=== PATIENT | female | born 1955 | race Caucasian/White ===

== ENCOUNTER → 2021-03-31 09:25 | Outpatient (BNVA) | payer MEDICARE, BC, SELFPAY | PROVIDERS: Family Provider Family Medicine; Visit Provider Nurse Practitioner Family | DX: E11.9 Type 2 diabetes mellitus without complications (principal) | CPT/HCPCS: 80048 ==

== ENCOUNTER → 2021-05-01 11:12 | Outpatient (BNVA) | payer MEDICARE, BC, SELFPAY | PROVIDERS: Family Provider Family Medicine; PCP Nurse Practitioner Family; Visit Provider Nurse Practitioner Family | DX: E11.9 Type 2 diabetes mellitus without complications (principal); R19.7 Diarrhea, unspecified; F41.9 Anxiety disorder, unspecified; F32.9 Major depressive disorder, single episode, unspecified; K21.9 Gastro-esophageal reflux disease without esophagitis; Z85.038 Personal history of other malignant neoplasm of large intestine | CPT/HCPCS: 80053; 80061; 83036; 84443; 85025 ==

== ENCOUNTER → 2021-05-05 09:48 | Outpatient (BNVA) | payer MEDICARE, BC, SELFPAY | PROVIDERS: Family Provider Family Medicine; PCP Nurse Practitioner Family; Visit Provider Nurse Practitioner Family | DX: E11.9 Type 2 diabetes mellitus without complications (principal); R19.7 Diarrhea, unspecified | CPT/HCPCS: 83630; 87338; 87506 ==

== ENCOUNTER → 2021-06-25 16:04 | Outpatient (BNVA) | payer MEDICARE, BC, SELFPAY | PROVIDERS: Family Provider Family Medicine; PCP Nurse Practitioner Family; Visit Provider Nurse Practitioner Family | DX: M79.642 Pain in left hand (principal) | CPT/HCPCS: 73130 ==

== ENCOUNTER → 2021-11-04 09:13 | Outpatient (BNVA) | payer MEDICARE, BC, SELFPAY | PROVIDERS: Family Provider Family Medicine; PCP Nurse Practitioner Family; Visit Provider Nurse Practitioner Family | DX: E11.9 Type 2 diabetes mellitus without complications (principal) | CPT/HCPCS: 80053; 80061; 83036; 85025 ==

== ENCOUNTER → 2021-12-01 11:53 | Outpatient (BNVA) | payer MEDICARE, BC, SELFPAY | PROVIDERS: Family Provider Family Medicine; PCP Nurse Practitioner Family; Visit Provider Nurse Practitioner Family | DX: R79.89 Other specified abnormal findings of blood chemistry (principal) | CPT/HCPCS: 80048 ==

== ENCOUNTER → 2022-02-09 00:01 | Outpatient (BNVA) | payer MEDICARE, BC, SELFPAY | PROVIDERS: Family Provider Family Medicine; PCP Nurse Practitioner Family; Visit Provider Nurse Practitioner Family | DX: E11.9 Type 2 diabetes mellitus without complications (principal); N18.9 Chronic kidney disease, unspecified | CPT/HCPCS: 80053; 80061; 82043; 82306; 82607; 83036; 83735; 84443; 85025 ==

== ENCOUNTER 2022-02-19 13:30 | Outpatient (CLI) | payer MEDICARE, BC, SELFPAY ==
--- NOTE | 2022-02-19 13:53 | MM_ITS ---
WS: [id number] BILATERAL 3D TOMOSYNTHESIS DIGITAL SCREENING MAMMOGRAPHY WITH CAD CLINICAL INFORMATION: Z12.31 - Encounter for screening mammogram for malignant ... HISTORY: Screening mammogram. No current complaints. COMPARISON: September 27, 2017 TECHNIQUE: Bilateral CC and MLO views. FINDINGS: Scattered fibroglandular densities bilaterally. Vascular calcification. Punctate and lucent centered calcifications. No suspicious focal mass, asymmetry, calcifications, or architectural distortion. No evidence of malignancy. MM/[place] [id number] IMPRESSION: BI-RADS: 2-Benign FOLLOW UP: 1 Year Follow-up Recommend return to annual screening mammography.
== END 2022-02-19 13:31 | disposition home or self-care (01) ==
LOC: RAD 13:34
PROVIDERS: PCP Nurse Practitioner Family; Visit Provider Nurse Practitioner Family
DX: Z12.31 Encounter for screening mammogram for malignant neoplasm of breast (principal)
CPT/HCPCS: 77063; 77067

== ENCOUNTER 2022-03-27 13:44 | Outpatient (CLI) | payer MEDICARE, BC, SELFPAY ==
--- NOTE | 2022-03-27 14:15 | US_ITS ---
WS: [id number] ULTRASOUND RENAL TECHNIQUE: Ultrasound examination of both kidneys. CLINICAL INFORMATION: N18.9 - Chronic kidney disease, unspecified COMPARISON: None. FINDINGS: RIGHT: Right kidney is normal in size and appearance. Echogenicity: Normal. Cortical thickness: 1.3 cm; Normal. Hydronephrosis: None. Perinephric fluid: None. Right kidney measures: 9.8 cm x 4.9 cm x 5.5 cm. LEFT: Left kidney is normal in size and appearance. Echogenicity: Normal. Cortical thickness: 1.4 cm; Normal. Hydronephrosis: None. Perinephric fluid: None. Left kidney measures: 10.4 cm x 4.2 cm x 5.9 cm. Normal visualized aorta. Bladder is decompressed and not visualized. US/US renal BI* [id number] IMPRESSION: Normal renal ultrasound
== END 2022-03-27 13:45 | disposition home or self-care (01) ==
LOC: RAD 13:46
PROVIDERS: PCP Nurse Practitioner Family; Visit Provider Nurse Practitioner Family
DX: N18.9 Chronic kidney disease, unspecified (principal)
CPT/HCPCS: 76770

== ENCOUNTER → 2022-05-05 14:29 | Outpatient (BNVA) | payer MEDICARE, BC, SELFPAY | PROVIDERS: PCP Nurse Practitioner Family; Visit Provider Nurse Practitioner Family | DX: M25.532 Pain in left wrist (principal) | CPT/HCPCS: 73110 ==

== ENCOUNTER → 2022-05-06 10:16 | Outpatient (BNVA) | payer MEDICARE, BC, SELFPAY | PROVIDERS: PCP Nurse Practitioner Family; Visit Provider Surgery | DX: Z12.11 Encounter for screening for malignant neoplasm of colon (principal) | CPT/HCPCS: 99213 ==

== ENCOUNTER → 2022-05-12 08:23 | Outpatient (BNVA) | payer MEDICARE, BC, SELFPAY | PROVIDERS: PCP Nurse Practitioner Family; Visit Provider Nurse Practitioner Family | DX: E11.9 Type 2 diabetes mellitus without complications (principal); F32.9 Major depressive disorder, single episode, unspecified; F41.9 Anxiety disorder, unspecified; I10 Essential (primary) hypertension; K21.9 Gastro-esophageal reflux disease without esophagitis; N18.9 Chronic kidney disease, unspecified | CPT/HCPCS: 80053; 80061; 83036; 85025 ==

== ENCOUNTER 2022-07-06 14:22 | Outpatient (CLI) | payer MEDICARE, BC, SELFPAY ==
--- NOTE | 2022-07-06 15:30 | XR_ITS ---
WS: [id number] DEXA (DUAL ENERGY X-RAY ABSORPTIOMETRY) Bone mineral density was performed using a INXPO machine. HISTORY: screening. COMPARISON: None available. Lumbar spine BMD (L1-L4): 1.006 g/cm2 T score: -1.4 Z score: -0.3 Total hip BMD: Left: 1.047 g/cm2. T score: 0.3 Z score: 1.2 Right: 1.066 g/cm2. T score: 0.5 Z score: 1.4 Left forearm BMD: 0.749 g/cm2. T score: -1.4 Z score: 0.0 10 year probability of a major osteoporotic fracture is 8.6%. XR/XR DEXA axial skeleton* [id number] IMPRESSION: OSTEOPENIA based upon the WHO classification for females.
== END 2022-07-06 14:23 | disposition home or self-care (01) ==
PROVIDERS: PCP Nurse Practitioner Family; Visit Provider Nurse Practitioner Family
DX: Z13.820 Encounter for screening for osteoporosis (principal); Z78.0 Asymptomatic menopausal state; M85.80 Other specified disorders of bone density and structure, unspecified site
CPT/HCPCS: 77080

== ENCOUNTER → 2022-07-08 09:07 | Outpatient (BNVA) | payer MEDICARE, BC, OTHER, SELFPAY | PROVIDERS: PCP Nurse Practitioner Family; Referring Provider Nurse Practitioner Family; Visit Provider Specialist | DX: M25.532 Pain in left wrist (principal); E11.40 Type 2 diabetes mellitus with diabetic neuropathy, unspecified; Z79.899 Other long term (current) drug therapy | CPT/HCPCS: 95908; 95909 ==

== ENCOUNTER 2022-07-17 07:35 | Day surgery (SDC) | payer MEDICARE, BC, SELFPAY ==
[2022-07-15 09:28] VITALS: BMI 29.3
[2022-07-17 07:56] VITALS: BP 156/67; PULSE 78; RESP 18; TEMP 36.3; O2SAT 98
[2022-07-17] MEDS: sodium chloride 0.9% 1,000 ML 30 ML IV (08:19)
--- NOTE | 2022-07-17 08:21 | P.ANESASSM_ITS ---
Pre-Anesthetic Assessment Height/Weight: Height 1.63 m Weight 77.564 kg Temp Pulse Resp BP Pulse Ox O2 Del Method 97.3 F L 78 18 156/67 98 07/17/22 07:56 07/17/22 07:56 07/17/22 07:56 07/17/22 07:56 07/17/22 07:56 07/17/22 07:56 Operation Date: 07/17/22 09:15 Proposed Procedures p Colonoscopy 94789,Z12.11(Not Applicable) - Rio Dominguez DO Familial anesthetic complications: None Was Beta Hanny taken within 24 hours: N/A Was Clonidine taken within 24 hours: N/A Last intake: Intake Last Liquid Date 07/16/22 Last Liquid Time 22:00 Last Solid Date 07/15/22 Last Solid Time 18:00 Social No alcohol and No tobacco Exam alert, oriented x 3, clear to auscultation bilaterally and regular rate & rhythm Airway Mallampati: Class III Dentition: other (bridge) Pulmonary Asthma CV/HEM Hypertension GI Gastroesophageal Reflux Disease Metabolic Diabetes Mellitus Anesthetic Plan ASA status: 3 Anesthesia: MAC Risk of > 500 ml blood loss (7ml/kg in children): No Medications/Allergies Home Medications Medication Instructions Recorded Confirmed Last Taken Type albuterol sulfate 90 mcg/actuation 2 puff inhalation Q6H PRN 03/03/21 07/15/22 Unknown History aerosol inhaler Shortness Of Breath blood sugar diagnostic (Accutrend 03/03/21 07/08/22 Unknown History Glucose test strips) buspirone 10 mg tablet 10 mg PO TID 90 days #270 tabs 05/05/22 07/15/22 Unknown Rx cyclobenzaprine 10 mg tablet 10 mg PO TID #90 tabs 05/05/22 07/15/22 Unknown Rx fluticasone 100 mcg-salmeterol 50 1 inh inhalation BID #60 ea 05/05/22 07/15/22 Unknown Rx mcg/dose blistr powdr for inhalation (Advair Diskus) fluticasone propionate 50 2 spray intranasal DAILY #16 grams 05/05/22 07/15/22 Unknown Rx mcg/actuation nasal spray,suspension (Allergy Relief (fluticasone)) gabapentin 300 mg capsule 300 mg PO TID #90 caps 05/05/22 07/15/22 Unknown Rx hydrochlorothiazide 12.5 mg tablet 12.5 mg PO QAM #90 tabs 05/05/22 07/15/22 Unknown Rx liraglutide 0.6 mg/0.1 mL (18 mg/3 1.8 mg (0.3 mL) SUBCUT DAILY #9 mL 05/05/22 07/15/22 Unknown Rx mL) subcutaneous pen injector (Victoza 3-Junior) olmesartan 5 mg tablet 5 mg PO DAILY #90 tabs 05/05/22 07/15/22 Unknown Rx tramadol 50 mg tablet 50 mg PO BID PRN pain #60 tabs 05/05/22 07/15/22 Unknown Rx DIABETIC SHOES AND INSERTS #1 ea 06/09/22 07/08/22 Unknown Rx sitagliptin 50 mg-metformin 500 mg 1 tab PO BID #60 tabs 07/03/22 07/15/22 Unknown Rx tablet (Janumet) raloxifene 60 mg tablet (Evista) 60 mg PO DAILY 90 days #90 tabs 07/06/22 07/15/22 Unknown Rx dexlansoprazole 60 mg 60 mg PO DAILY 90 days #90 caps 07/07/22 07/15/22 Unknown Rx capsule,biphase delayed release (Dexilant) flash glucose scanning reader #1 ea 07/07/22 07/08/22 Unknown Rx (FreeStyle Keren 14 Day [place]) flash glucose sensor (FreeStyle #2 ea 07/07/22 07/08/22 Unknown Rx Keren 14 Day Sensor) semaglutide (Ozempic) 0.25 mg (0.2 mL) SUBCUT .weekly 30 07/07/22 07/08/22 Unknown Rx days #1.5 mL bupropion HCl 300 mg 24 hr tablet, 300 mg PO DAILY 07/17/22 07/17/22 Unknown History extended release Allergies Allergy/AdvReac Type Severity Reaction Status Date / Time No Known Allergies Allergy Verified 07/08/22 09:11 Current Medications Generic Name Dose Route Start Last Admin Trade Name Freq PRN Reason Stop Dose Admin Sodium Chloride 1,000 mls @ 30 mls/hr 07/17/22 07:45 07/17/22 08:19 Sodium Chloride 0.9% IV 07/18/22 07:44 30 mls/hr .Q24H SOHAIL Administration PFSH Anesthesia Medical History Anxiety and depression Asthma Colon cancer Diabetes mellitus GERD (gastroesophageal reflux disease) IBS (irritable bowel syndrome) Screening mammogram, encounter for Surgical History H/O abdominal hysterectomy History of cholecystectomy History of colon resection History of removal of cyst Hx of colonoscopy Family History Father Diabetes CAD (coronary artery disease) Mother Diabetes Cancer CAD (coronary artery disease) Denies family history of Hyperlipidemia Psychiatric illness Stroke Social History Smoking and tobacco status: never smoked Second hand smoke exposure: No Alcohol intake: current Alcohol intake frequency: holidays/special occasions o nly Caregiver/support person: Yes Lives independently: Yes Household members: caregiver Marital status: Current occupational status: employed Current occupation: Caregiver for elderly lady History of recent travel: No Current gender identity: Female Special cooper needs: No Agree to transfusion: Yes Data Anesthesia Cardiac Studies: No Data to Display
--- NOTE | 2022-07-17 08:39 | PM.HP ---
Providers/Chief Complaint Primary Care Provider: Nereida Lindsey NP Chief Complaint: History of colon cancer History of Present Illness Katie Malik is a 67 year old female here for colonoscopy Medications/Allergies Home Medications Medication Instructions Recorded Confirmed Last Taken Type albuterol sulfate 90 mcg/actuation 2 puff inhalation Q6H PRN 03/03/21 07/15/22 07/02/22 History aerosol inhaler Shortness Of Breath blood sugar diagnostic (Accutrend 03/03/21 07/08/22 Unknown History Glucose test strips) buspirone 10 mg tablet 10 mg PO TID 90 days #270 tabs 05/05/22 07/15/22 07/16/22 Rx fluticasone 100 mcg-salmeterol 50 1 inh inhalation BID #60 ea 05/05/22 07/15/22 07/02/22 Rx mcg/dose blistr powdr for inhalation (Advair Diskus) fluticasone propionate 50 2 spray intranasal DAILY #16 grams 05/05/22 07/15/22 07/02/22 Rx mcg/actuation nasal spray,suspension (Allergy Relief (fluticasone)) gabapentin 300 mg capsule 300 mg PO TID #90 caps 05/05/22 07/15/22 07/16/22 Rx hydrochlorothiazide 12.5 mg tablet 12.5 mg PO QAM #90 tabs 05/05/22 07/15/22 07/16/22 Rx liraglutide 0.6 mg/0.1 mL (18 mg/3 1.8 mg (0.3 mL) SUBCUT DAILY #9 mL 05/05/22 07/15/22 07/16/22 Rx mL) subcutaneous pen injector (Victoza 3-Junior) olmesartan 5 mg tablet 5 mg PO DAILY #90 tabs 05/05/22 07/15/22 07/16/22 Rx tramadol 50 mg tablet 50 mg PO BID PRN pain #60 tabs 05/05/22 07/15/22 07/02/22 Rx DIABETIC SHOES AND INSERTS #1 ea 06/09/22 07/08/22 Unknown Rx sitagliptin 50 mg-metformin 500 mg 1 tab PO BID #60 tabs 07/03/22 07/15/22 07/16/22 Rx tablet (Janumet) raloxifene 60 mg tablet (Evista) 60 mg PO DAILY 90 days #90 tabs 07/06/22 07/15/22 07/16/22 Rx dexlansoprazole 60 mg 60 mg PO DAILY 90 days #90 caps 07/07/22 07/15/22 07/16/22 Rx capsule,biphase delayed release (Dexilant) flash glucose scanning reader #1 ea 07/07/22 07/08/22 Unknown Rx (FreeStyle Keren 14 Day [place]) flash glucose sensor (FreeStyle #2 ea 07/07/22 07/08/22 Unknown Rx Keren 14 Day Sensor) semaglutide (Ozempic) 0.25 mg (0.2 mL) SUBCUT .weekly 30 07/07/22 07/17/22 Unknown Rx days #1.5 mL bupropion HCl 300 mg 24 hr tablet, 300 mg PO DAILY 07/17/22 07/17/22 07/16/22 History extended release cyclobenzaprine 10 mg tablet 10 mg PO TID PRN Spasms 07/17/22 07/15/22 07/02/22 History Allergies Allergy/AdvReac Type Severity Reaction Status Date / Time No Known Allergies Allergy Verified 07/08/22 09:11 PFSH Acute PFSH: Medical History Anxiety and depression Asthma Colon cancer Diabetes mellitus GERD (gastroesophageal reflux disease) IBS (irritable bowel syndrome) Screening mammogram, encounter for Surgical History H/O abdominal hysterectomy History of cholecystectomy History of colon resection History of removal of cyst Hx of colonoscopy Family History Father Diabetes CAD (coronary artery disease) Mother Diabetes Cancer CAD (coronary artery disease) Denies family history of Hyperlipidemia Psychiatric illness Stroke Social History Smoking and tobacco status: never smoked Second hand smoke exposure: No Alcohol intake: current Alcohol intake frequency: holidays/special occasions only Caregiver/support person: Yes Lives independently: Yes Household members: caregiver Marital status: Current occupational status: employed 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
[2022-07-17 09:08] VITALS: BP 141/62; PULSE 85; RESP 18; TEMP 36.1; O2SAT 97
--- NOTE | 2022-07-17 09:12 | ANE.PACU2 ---
Inpatient post-anesthesia follow up: Airway intact: Yes Vital signs: Temperature 97.0 F Pulse Rate 85 Respiratory Rate 18 Blood Pressure 141/62 Pulse Oximetry 97 Oxygen Delivery Me thod Room Air Oxygen Flow Rate Fraction of Inspir ed Oxygen Hydration adequate: Yes Nausea and vomiting: No Pain level: 1 Mental status: Baseline
[2022-07-17 09:18] VITALS: BP 148/74; PULSE 82; RESP 18; O2SAT 96
== END 2022-07-17 09:34 | disposition home or self-care (01) ==
PROVIDERS: PCP Nurse Practitioner Family; Visit Provider Surgery
PROC: 0DJD8ZZ Inspection of Lower Intestinal Tract, Via Natural or Artificial Opening Endoscopic (ICD-10-PCS; CPT 45378; principal; 2022-07-17 09:15)
DX: Z12.11 Encounter for screening for malignant neoplasm of colon (principal); K57.30 Diverticulosis of large intestine without perforation or abscess without bleeding; D12.3 Benign neoplasm of transverse colon; K51.40 Inflammatory polyps of colon without complications; I10 Essential (primary) hypertension; E11.9 Type 2 diabetes mellitus without complications; K21.9 Gastro-esophageal reflux disease without esophagitis; Z85.038 Personal history of other malignant neoplasm of large intestine
CPT/HCPCS: 45385; 88305; J2704; J7030

== ENCOUNTER → 2022-08-04 12:13 | Outpatient (BNVA) | payer MEDICARE, BC, SELFPAY | PROVIDERS: PCP Nurse Practitioner Family; Visit Provider Surgery | DX: Z09 Encounter for follow-up examination after completed treatment for conditions other than malignant neoplasm (principal); K63.5 Polyp of colon; K57.90 Diverticulosis of intestine, part unspecified, without perforation or abscess without bleeding | CPT/HCPCS: 99212 ==

== ENCOUNTER → 2022-08-20 13:46 | Outpatient (BNVA) | payer MEDICARE, BC, SELFPAY | PROVIDERS: PCP Nurse Practitioner Family; Visit Provider Nurse Practitioner Family | DX: E11.9 Type 2 diabetes mellitus without complications (principal); F32.9 Major depressive disorder, single episode, unspecified; F41.9 Anxiety disorder, unspecified; I10 Essential (primary) hypertension; K21.9 Gastro-esophageal reflux disease without esophagitis; M85.80 Other specified disorders of bone density and structure, unspecified site; N18.32 Chronic kidney disease, stage 3b; N18.9 Chronic kidney disease, unspecified | CPT/HCPCS: 80053; 80061; 83036 ==

== ENCOUNTER 2023-01-06 14:34 | Outpatient (CLI) | payer MEDICARE, BC, SELFPAY ==
--- NOTE | 2023-01-06 14:47 | US_ITS ---
WS: [id number] RENAL ULTRASOUND HISTORY: STAGE 3B CHRONIC KIDNEY DZ COMPARISON: 03/27/2022 TECHNIQUE: 2-D and color Doppler imaging of the kidney submitted. Right kidney: 10.8 cm x 5.4 cm x 5.0 cm. Cortex: 1.4 cm. Normal echogenicity with no hydronephrosis or mass. Left kidney: 9.9 cm x 3.9 cm x 5.1 cm. Cortex: 1.2 cm. Normal echogenicity with no hydronephrosis or mass. Aorta: Normal. Urinary Bladder: Normal distention. US/US renal BI* [id number] IMPRESSION: Normal renal ultrasound. No hydronephrosis or mass. Similar to the prior examin ation from 03/27/2022.
== END 2023-01-06 14:35 | disposition home or self-care (01) ==
LOC: RAD 14:37
PROVIDERS: PCP Nurse Practitioner Family; Visit Provider Internal Medicine Nephrology
DX: N18.32 Chronic kidney disease, stage 3b (principal)
CPT/HCPCS: 76770

== ENCOUNTER 2023-02-25 11:52 | Outpatient (CLI) | payer MEDICARE, BC, SELFPAY ==
--- NOTE | 2023-02-25 12:06 | MM_ITS ---
WS: [id number] Bilateral screening 3D tomosynthesis digital mammogram, 02/25/2023 Clinical Data: SCREENING Comparison: 02/19/2022, 09/27/2017, 09/23/2016, 10/14/2015, 10/10/2014, 10/09/2013, 09/29/2012, 08/21/20 10. Findings: The breast parenchymal pattern shows fat replacement. No spiculated masses or clustered calcification s are seen. There are no secondary signs of carcinoma. There are calcifications in the mejia small ve ssels. There are bilateral mole markers. MM/[place] [id number] Impression: 1. Negative bilateral mammogram unchanged. 2. Recommend annual screening mammograms. BIRADS: 1-Negative FOLLOW UP: 1 Year Follow-up The CAD checker in was used.
== END 2023-02-25 11:53 | disposition home or self-care (01) ==
LOC: RAD 11:55
PROVIDERS: PCP Nurse Practitioner Family; Visit Provider Nurse Practitioner Family
DX: Z12.31 Encounter for screening mammogram for malignant neoplasm of breast (principal)
CPT/HCPCS: 77063; 77067

== ENCOUNTER 2024-03-07 09:52 | Outpatient (CLI) | payer MEDICARE, BC, SELFPAY ==
--- NOTE | 2024-03-07 10:00 | MM_ITS ---
WS: [id number] BILATERAL 3D TOMOSYNTHESIS DIGITAL SCREENING MAMMOGRAPHY WITH CAD CLINICAL INFORMATION: SCREENING HISTORY: Screening mammogram. No current complaints. COMPARISON: 2022 TECHNIQUE: Bilateral CC and MLO views. FINDINGS: Scattered fibroglandular densities bilaterally. No suspicious focal mass, asymmetry, calcifications, or architectural distortion. No evidence of malignancy. Vascular calcifications. Incidental punctate calcifications. MM/[id number] IMPRESSION: BI-RADS: 2-Benign FOLLOW UP: 1 Year Follow-up Recommend return to annual screening mammography.
== END 2024-03-07 09:53 | disposition home or self-care (01) ==
LOC: MOBLMAM 10:03
PROVIDERS: PCP Nurse Practitioner Family; Visit Provider Nurse Practitioner Family
DX: Z12.31 Encounter for screening mammogram for malignant neoplasm of breast (principal)
CPT/HCPCS: 77063; 77067

== ENCOUNTER → 2024-03-21 13:35 | Outpatient (BNVA) | payer MEDICARE, BC, SELFPAY | PROVIDERS: PCP Nurse Practitioner Family; Visit Provider Nurse Practitioner Family | DX: D48.5 Neoplasm of uncertain behavior of skin (principal); L57.0 Actinic keratosis; L82.0 Inflamed seborrheic keratosis; L82.1 Other seborrheic keratosis; L72.0 Epidermal cyst; D22.5 Melanocytic nevi of trunk | CPT/HCPCS: 17110; 99203 ==

== ENCOUNTER → 2024-04-14 10:34 | Outpatient (BNVA) | payer MEDICARE, BC, SELFPAY | PROVIDERS: PCP Nurse Practitioner Family; Visit Provider Nurse Practitioner Family | DX: D48.5 Neoplasm of uncertain behavior of skin (principal); L57.0 Actinic keratosis; L82.0 Inflamed seborrheic keratosis; D22.5 Melanocytic nevi of trunk; L82.1 Other seborrheic keratosis | CPT/HCPCS: 11104; 17000; 17110; 99213 ==

== ENCOUNTER → 2024-04-24 14:22 | Outpatient (BNVA) | payer MEDICARE, BC, SELFPAY | PROVIDERS: PCP Nurse Practitioner Family; Visit Provider Nurse Practitioner Family | DX: L72.0 Epidermal cyst (principal); Z48.02 Encounter for removal of sutures; L81.4 Other melanin hyperpigmentation | CPT/HCPCS: 99213 ==

== ENCOUNTER → 2024-06-23 09:11 | Outpatient (BNVA) | payer MEDICARE, BC, SELFPAY | PROVIDERS: PCP Nurse Practitioner Family; Visit Provider Nurse Practitioner Family | DX: L57.0 Actinic keratosis (principal); L82.0 Inflamed seborrheic keratosis; L82.1 Other seborrheic keratosis; L81.4 Other melanin hyperpigmentation | CPT/HCPCS: 17000; 17110; 99213 ==

== ENCOUNTER → 2024-07-24 08:03 | Outpatient (BNVA) | payer MEDICARE, BC, SELFPAY | PROVIDERS: PCP Nurse Practitioner Family; Visit Provider Nurse Practitioner Family | DX: C44.311 Basal cell carcinoma of skin of nose (principal) | CPT/HCPCS: 17110; 99213 ==

== ENCOUNTER → 2025-06-26 13:26 | Outpatient (BNVA) | payer MEDICARE, BC, SELFPAY | PROVIDERS: PCP Nurse Practitioner Family; Visit Provider Nurse Practitioner Family | DX: L72.0 Epidermal cyst (principal); S80.862A Insect bite (nonvenomous), left lower leg, initial encounter; L65.8 Other specified nonscarring hair loss; L82.1 Other seborrheic keratosis; L81.4 Other melanin hyperpigmentation; L57.8 Other skin changes due to chronic exposure to nonionizing radiation; L57.0 Actinic keratosis; X58.XXXA Exposure to other specified factors, initial encounter | CPT/HCPCS: 17000; 99213 ==

== ENCOUNTER → 2025-06-28 13:43 | Outpatient (BNVA) | payer MEDICARE, BC, SELFPAY | PROVIDERS: PCP Nurse Practitioner Family; Visit Provider Dermatology | DX: D48.5 Neoplasm of uncertain behavior of skin (principal); R20.8 Other disturbances of skin sensation; R23.8 Other skin changes; L53.8 Other specified erythematous conditions | CPT/HCPCS: 11441; 12051 ==